=== PATIENT | male | born 1965 | race African-American/Black ===

== ENCOUNTER 2019-08-03 01:26 | Emergency (ER) | payer OTHER ==
[~2019-08-03] VITALS: Ht 175.3 cm; Wt 84.0 kg
[2019-08-03 01:36] VITALS: BP 146/82
[2019-08-03] MEDS ORDERED: LIDOCAINE HCL 1%/EPI 1:200,000 30 ML VIAL MC ONE (02:30)
[2019-08-03] MEDS ORDERED: LIDOCAINE HCL/EPINEPHRINE 1%-EPI 1:100,000 20 ML VIAL INFIL NR (02:45)
[2019-08-03] MEDS ORDERED: TETRACAINE 0.5% OPHTH DROPS 4ML BOTHEYE ONE (03:00)
[2019-08-03] MEDS ORDERED: FLUORESCEIN SODIUM 1MG/STRIP BOTHEYE ONE (03:00)
== END 2019-08-03 05:44 | disposition home or self-care (01) ==
LOC: ER 01:44 → EDBD 01:44 → ER 05:44
DX: S01.21XA Laceration without foreign body of nose, initial encounter (principal); I10 Essential (primary) hypertension; Z88.5 Allergy status to narcotic agent; W25.XXXA Contact with sharp glass, initial encounter; Y93.89 Activity, other specified; Y92.018 Other place in single-family (private) house as the place of occurrence of the external cause
CPT/HCPCS: 12011; 70486; 99284; J3490